=== PATIENT | male | born 1990 | race Caucasian/White ===

== ENCOUNTER 2016-09-19 21:29 | Emergency (ER) | payer OTHER, SELFPAY ==
[~2016-09-19] VITALS: Ht 182.9 cm; Wt 90.7 kg
[2016-09-19 21:29] VITALS: BP 133/88
--- NOTE | 2016-09-19 23:58 | ED PDOC ---
Post-Departure Follow-Up Patient presents to the ED for evaluation of a dog bite in posterior left knee. He states that he was playing with his daughter, and the puppy, and the puppy became excited and bit him. He states the dogs' shots are up to date and his tetanus status is up to date. He was medicated for pain with Naprosyn and [place]. He was given Augmentin for prophylaxis. He was advised that I would irrigate the 2 lacerations and loosely approximate the edges with nicolas CALE MOREIRA. [facility] Sep 19, 2016 23:58
[2016-09-20] MEDS ORDERED: LIDOCAINE W/EPINEPHRINE 1% 20ML VIAL SC ONE
[2016-09-20] MEDS ORDERED: NAPROXEN 250 MG TAB PO ONE
[2016-09-20] MEDS ORDERED: AUGMENTIN 875 MG TAB PO ONE
[2016-09-20] MEDS ORDERED: NORCO, ANEXSIA 5/325MG TABLET (HYDROcodone/ACETAMINOPHEN) PO ONE
--- NOTE | 2016-09-20 00:34 | ED PDOC ---
Post-Departure Follow-Up Wounds irrigated with copious amounts of saline. No foreign body/retained tooth noted. See procedure note for repair. Prepared for discharge. Reviewed prescriptions, wound care and worrisome signs to return to the ED for. Questions answered. Patient, and , state understanding to the instructions CALE MOREIRA [facility] Sep 20, 2016 00:34
[2016-09-20] MEDS ORDERED: NORCOTAB PO (00:36)
[2016-09-20] MEDS ORDERED: AUGM875T28 PO (00:36)
[2016-09-20] MEDS ORDERED: NAPR500T PO (00:36)
== END 2016-09-20 00:55 | disposition home or self-care (01) ==
LOC: M ED 23:01
DX: S81.002A Unspecified open wound, left knee, initial encounter (principal); W54.0XXA Bitten by dog, initial encounter; Y92.019 Unspecified place in single-family (private) house as the place of occurrence of the external cause; Y93.89 Activity, other specified; Y99.9 Unspecified external cause status